=== PATIENT | female | born 1965 | race Caucasian/White ===

== ENCOUNTER 2021-06-26 08:35 | Day surgery (SDC) | payer OTHER ==
[2021-06-22 12:05] VITALS: BMI 28.6
[2021-06-26] MEDS ORDERED: Lidocaine 1% MPF 2 ML VIAL ONE (09:51)
[2021-06-26] MEDS ORDERED: Lidocaine 2% MPF 10 ML AMP (For Epidural Use) ONE (10:39)
[2021-06-26] MEDS ORDERED: PROPOFOL 40 ML ONE (10:42)
[2021-06-26] MEDS ORDERED: PROPOFOL 20 ML ONE (10:53)
== END 2021-06-26 11:31 | disposition home or self-care (01) ==
LOC: CSHSDC 08:35
PROVIDERS: ATTEND Internal Medicine Gastroenterology
PROC: 0DJD8ZZ Inspection of Lower Intestinal Tract, Via Natural or Artificial Opening Endoscopic (ICD-10-PCS; principal; 2021-06-26)
DX: Z12.11 Encounter for screening for malignant neoplasm of colon (principal); Z85.3 Personal history of malignant neoplasm of breast; E03.9 Hypothyroidism, unspecified
CPT/HCPCS: J2704